=== PATIENT | female | born 1985 | race Caucasian/White ===

== ENCOUNTER 2023-01-25 10:30 | Emergency (ER) | payer MEDICARE, MEDICAID, SELFPAY ==
[2023-01-25 11:02] VITALS: BP 104/78; PULSE 80; RESP 14; TEMP 36.4; O2SAT 99; BMI 27.7
[2023-01-25 13:35] VITALS: BP 122/78; PULSE 78; RESP 14; O2SAT 99
--- NOTE | 2023-01-25 14:42 | ED_ITS ---
HPI - Recheck/Abnormal Lab/Rx <Martínez Cox PA-C - Last Filed: 01/26/23 11:33> General Chief Complaint: Recheck/Abnormal Lab/Rx Stated Complaint: needs meds refill Time Seen by Provider: 01/25/23 12:57 Source: patient Mode of arrival: Ambulatory History of Present Illness HPI narrative: 37-year-old female with past medical history paranoid schizophrenia, PTSD presents to the ED accompanied by her cousin and her aunt for medication refills. Patient recently move to [facility] and the [facility], is in the process of getting her state insurance and establishing care with a PCP. Patient is meanwhile running out of her prescription medications, therefore presents to the ED for some refills until she can see her new doctor. Patient is scheduled to see her new PCP in mid February. Patient presents with prescriptions for benztropine, hydroxyzine, escitalopram, trazodone. Patient also receives what might be a long-acting version of a Haldol injection every 3 weeks, however patient is and states that she does not know what the dose is or anymore details. Patient states that her mental status feels stable currently. She is not hearing any voices. She is eating and sleeping well. Her mood appears to be stable. Patient denies any suicidal or homicidal ideation. Related Data Previous Rx's Medication Instructions Recorded benztropine 0.5 mg tablet 0.5 mg PO BEDTIME #60 tabs 01/25/23 clindamycin phosphate 1 % topical 1 applic topical BID 2 months #60 01/25/23 solution mL escitalopram oxalate 10 mg tablet 10 mg PO DAILY 60 days #60 tabs 01/25/23 hydroxyzine HCl 50 mg tablet 50 mg PO TID PRN anxiety 60 days 01/25/23 #180 tabs trazodone 100 mg tablet 200 mg (2 x 100 mg) PO BEDTIME PRN 01/25/23 sleep 60 days #120 tabs Allergies Allergy/AdvReac Type Severity Reaction Status Date / Time No Known Drug Allergies Allergy Verified 01/25/23 11:07 Review of Systems <Martínez Cox PA-C - Last Filed: 01/26/23 11:33> Review of Systems ROS Unobtainable: All systems reviewed & are unremarkable except as noted in HPI and below Constitutional Constitutional: Denies chills, Denies fatigue, Denies fever(s), Denies frequent falls, Denies lethargy and Denies weakness Eyes Eyes: Denies change in vision, Denies eye discharge, Denies irritation and Denies loss of vision ENT Ears, Nose, Mouth, and Throat: Denies change in voice, Denies dizziness, Denies neck pain, Denies sore throat and Denies throat swelling Cardiovascular Cardiovascular: Denies chest pain, Denies irregular heart rhythm, Denies lightheadedness, Denies palpitations, Denies dyspnea, Denies dyspnea on exertion and Denies orthopnea Respiratory Respiratory: Denies cough, Denies dyspnea, Denies dyspnea on exertion and Denies wheezing Gastrointestinal Gastrointestinal: Denies abdominal pain, Denies change in bowel habits, Denies diarrhea, Denies nausea and Denies vomiting Musculoskeletal Musculoskeletal: Denies neck pain and Denies numbness Integumentary/Breasts Skin/Breast: Denies pruritus, Denies erythema, Denies rash and Denies wounds Neurologic Neurologic: Denies behavioral changes, Denies confusion, Denies dizziness, Denies frequent falls, Denies loss of vision, Denies numbness and Denies weakness Psychiatric Psychiatric: Denies anxiety, Denies behavioral changes, Denies confusion, Denies depression, Denies homicidal ideation and Denies suicidal ideation Endocrine Endocrine: Denies fatigue, Denies flushing and Denies palpitations Hematologic/Lymphatic Hematologic/Lymphatic: Denies easy bruising Allergic/Immunologic Allergic/Immunologic: Denies urticaria, Denies throat swelling and Denies wheezing Patient History <Martínez Cox PA-C - Last Filed: 01/26/23 11:33> Social History Smoking Status: Never smoker Smoking Status: Never smoker alcohol intake frequency: 0-2 drinks per day Substance Use Type: does not use Exam <Martínez Cox PA-C - Last Filed: 01/26/23 11:33> Narrative Exam Narrative: Const General:?cooperative, healthy appearing and comfortable [facility] Head:?normal to inspection Ears:?hearing grossly normal bilaterally Nose:?external nose normal Face and sinus:?normal facial exam and sinuses nontender Mouth:?oral mucosae normal Throat:?posterior oropharynx normal Eyes General:?appearance normal, both eyes and all related structures Neck Neck:?normal visual inspection and no lymphadenopathy noted Resp Effort & Inspection:?normal respiratory effort Auscultation:?clear to auscultation bilaterally Cardio Rate:?regular rate Rhythm:?regular rhythm Neuro General:?patient alert, patient awake and patient oriented x3 Initial Vital Signs Initial Vital Signs: Vital Signs Temperature 97.6 F 01/25/23 11:02 Pulse Rate 80 01/25/23 11:02 Respiratory Rate 14 01/25/23 11:02 Blood Pressure 104/78 01/25/23 11:02 Pulse Oximetry 99 01/25/23 11:02 Oxygen Delivery Method Room Air 01/25/23 11:02 <Dalia Wheeler MD - Last Filed: 01/26/23 13:59> Initial Vital Signs Initial Vital Signs: Vital Signs Temperature 97.6 F 01/25/23 11:02 Pulse Rate 80 01/25/23 11:02 Respiratory Rate 14 01/25/23 11:02 Blood Pressure 104/78 01/25/23 11:02 Pulse Oximetry 99 01/25/23 11:02 Oxygen Delivery Method Room Air 01/25/23 11:02 Course <Martínez Cox PA-C - Last Filed: 01/26/23 11:33> Vital Signs Vital signs: Vital Signs - 8 hr 01/25/23 11:02 01/25/23 13:35 Temperature 97.6 F Pulse Rate 80 78 Respiratory Rate 14 14 Blood Pressure 104/78 122/78 Pulse Oximetry 99 99 Oxygen Delivery Method Room Air Room Air <Dalia Wheeler MD - Last Filed: 01/26/23 13:59> Vital Signs Vital signs: Vital Signs - 8 hr 01/25/23 11:02 01/25/23 13:35 Temperature 97.6 F Pulse Rate 80 78 Respiratory Rate 14 14 Blood Pressure 104/78 122/78 Pulse Oximetry 99 99 Oxygen Delivery Method Room Air Room Air MDM - Recheck/Abnormal Lab/Rx <Martínez Cox PA-C - Last Filed: 01/26/23 11:33> MDM Narrative Medical decision making narrative: 37-year-old female with past medical history paranoid schizophrenia, PTSD presents to the ED accompanied by her cousin and her aunt for medication refill s. Refill prescriptions for trazodone, hydroxyzine, escitalopram, benztropine. Discussed with patient and her relatives that it is advisable they follow-up with patient's prior doctor to get details on the Haldol, and have it every started by her PCP in February. ED return precautions discussed with patient and patient's relatives. They verbalized understanding. Discharge Plan Departure Patient Disposition: Home Clinical Impression: Encounter for medication refill Instructions: DI for Schizophrenia Activity Restrictions/Additional Instructions: You were seen in the ED today for some medication refills since you moved to [place] recently and are in the process of establishing a new provider and new medical insurance. You are being prescribed benztropine, hydroxyzine, escitalopram, trazodone for 2 months so you can continue to receive her medications until you see your new doctor. It is unclear what dose of long- acting Haldol injection you are receiving, and this is not a medication that we have available in the emergency department. I would recommend calling your previous doctor to get details on dose and frequency, and let your new doctor know that this is something that needs to be re-initiated. You were also being prescribed topical clindamycin solution for the rash under your left arm. Please follow-up with the steam shovel operating engineer as soon as possible for it. Return to the ED if you have any thoughts of harming yourself or others around yourself. Prescriptions: New trazodone 100 mg tablet 200 mg PO BEDTIME PRN (Reason: sleep) 60 Days Qty: 120 0RF escitalopram oxalate 10 mg tablet 10 mg PO DAILY 60 Days Qty: 60 0RF hydroxyzine HCl 50 mg tablet 50 mg PO TID PRN (Reason: anxiety) 60 Days Qty: 180 0RF benztropine 0.5 mg tablet 0.5 mg PO BEDTIME Qty: 60 0RF clindamycin phosphate 1 % solution 1 applic topical BID 60 Days Qty: 60 0RF Stand Alone Forms: Patient Portal/API ED Sign-out <Dalia Wheeler MD - Last Filed: 01/26/23 13:59> Cosign ED Attending Cosignature Attestation: I did not see this patient. I was available all times for consultation.
== END 2023-01-25 13:36 | disposition home or self-care (01) ==
PROVIDERS: Emergency Provider Student in an Organized Health Care Education/Training Program
DX: Z76.0 Encounter for issue of repeat prescription (principal); R21 Rash and other nonspecific skin eruption
CPT/HCPCS: 99281; 99282

== ENCOUNTER 2023-04-05 09:28 | Emergency (ER) | payer MEDICARE, MEDICAID, SELFPAY ==
[2023-04-05 09:31] VITALS: PULSE 89; RESP 14; TEMP 36.3; O2SAT 100; BMI 32.3
--- NOTE | 2023-04-05 09:59 | PC.NURSE ---
Called [facility] in [place],she receives 100mg haldol q month
--- NOTE | 2023-04-05 10:53 | PC.NURSE ---
Provider prescribed haldol dose was not available to administer. Provider wrote script for patient to lease picker dose at pharmacy. Order on MAR canceled per provider.
[2023-04-05 10:55] VITALS: BP 148/72; PULSE 86; RESP 18; TEMP 36.8; O2SAT 98
--- NOTE | 2023-04-06 18:08 | ED_ITS ---
HPI - Recheck/Abnormal Lab/Rx General Chief Complaint: Recheck/Abnormal Lab/Rx Stated Complaint: needs meds straightened hears voices Time Seen by Provider: 04/05/23 09:49 Source: patient Mode of arrival: Ambulatory History of Present Illness HPI narrative: 37-year-old female with a history of schizophrenia and recently moved here from [place]. She has not been getting her regular psychiatric medications since moving as she moved here without a provider. In particular, she and her aunt who is her caregiver are hoping she can get Haldol Decanoate 100 mg which she receives monthly IM injections of and she has not had an over 2 months. Patient is not having suicidal or homicidal ideations. Also needs refill is of some of her regular medications. Related Data Previous Rx's Medication Instructions Recorded benztropine 0.5 mg tablet 0.5 mg PO BEDTIME #60 tabs 01/25/23 benztropine 0.5 mg tablet 0.5 mg PO DAILY #30 tabs 04/05/23 escitalopram oxalate 10 mg tablet 10 mg PO DAILY #30 tabs 04/05/23 haloperidol decanoate 100 mg/mL 100 mg IM Q4W #1 mL 04/05/23 intramuscular solution (Haldol Decanoate) trazodone 100 mg tablet 200 mg (2 x 100 mg) PO BEDTIME #60 04/05/23 tabs Allergies Allergy/AdvReac Type Severity Reaction Status Date / Time Penicillins Allergy Verified 04/05/23 09:31 Patient History Social History Smoking Status: Never smoker Smoking Status: Never smoker alcohol intake frequency: holidays/special occasions only Substance Use Type: does not use Exam Initial Vital Signs Initial Vital Signs: Vital Signs Temperature 97.3 F L 04/05/23 09:31 Pulse Rate 89 04/05/23 09:31 Respiratory Rate 14 04/05/23 09:31 Pulse Oximetry 100 04/05/23 09:31 Oxygen Delivery Method Room Air 04/05/23 09:31 Const General: No acute distress HENMT Head: normocephalic and atraumatic Resp Effort & Inspection: normal respiratory effort Cardio Other: Heart rate is normal Skin Other: Skin is warm and dry Neuro General: patient alert and patient oriented x3 Psych Appearance: well kempt Mood: congruent mood Affect: normal affect Judgment: judgment good Course Orders Ordered: Discontinued Medications Non-Formulary Medication (Haldol Decanoate) 100 mg IM NOW ONE Stop: 04/05/23 10:32 Last Admin: 04/05/23 10:53 Dose: Not Given Documented By: RB MDM - Recheck/Abnormal Lab/Rx MDM Narrative Medical decision making narrative: 37-year-old female requesting refills on her psych medications. I have provided a prescription for a dose of Haldol Decanoate as well as refills of benztropine and Lexapro. Encouraged him to establish care in the community which they are making every effort to do. Discharge Plan Departure Patient Disposition: Home Clinical Impression: Encounter for medication refill Activity Restrictions/Additional Instructions: I sent a prescription for medication refills including a single dose of injectable Haldol to your pharmacy. I hope that you can establish primary care for her soon. Previous psych medication should be continued by new primary care provider or psychiatrist. Prescriptions: New benztropine 0.5 mg tablet 0.5 mg PO DAILY Qty: 30 0RF escitalopram oxalate 10 mg tablet 10 mg PO DAILY Qty: 30 0RF trazodone 100 mg tablet 200 mg PO BEDTIME Qty: 60 0RF Rx Instructions: prn QHS for sleep haloperidol decanoate [Haldol Decanoate] 100 mg/mL solution 100 mg IM Q4W Qty: 1 0RF No Action benztropine 0.5 mg tablet 0.5 mg PO BEDTIME Qty: 60 0RF Stand Alone Forms: Patient Portal/API
== END 2023-04-05 10:57 | disposition home or self-care (01) ==
PROVIDERS: Emergency Provider Emergency Medicine
DX: Z76.0 Encounter for issue of repeat prescription (principal)
CPT/HCPCS: 99281; 99282

== ENCOUNTER → 2024-02-25 12:42 | Outpatient (CLI) | payer MEDICARE, MEDICAID, SELFPAY ==
[2024-02-25 13:08] LABS: Add Manual Diff / Slide Review NO; Basophils Absolute Auto 100 /uL (0-100); Basophils Percent Auto 0.9 % (0-2); Eosinophils Absolute Auto 100 /uL (0-450); Eosinophils Percent Auto 1.5 % (2-4); Hematocrit 41.8 % (36-46); Hemoglobin 14.1 g/dL (12.0-16.0); Lymphocytes Absolute Auto 2600 /uL (1100-4500); Lymphocytes Percent Auto 35.7 % (25-40); Mean Corpuscular HGB Conc 33.8 % (30-36); Mean Corpuscular Hemoglobin 29.2 PG (26-34); Mean Corpuscular Volume 86.5 fL (80-100); Monocytes Absolute Auto 700 /uL (0-900); Monocytes Percent Auto 9.2 % (3-14); Neutrophils Absolute Auto 3800 /uL (1500-7000); Neutrophils Percent Auto 52.7 % (50-75); Platelet Count 319 X10^3/uL (150-400); Red Blood Cell Count 4.83 X10^6/uL (4.0-5.2); Red Cell Distribution Width 13.5 % (11.6-14.8); White Blood Cell Count 7.3 X10^3/uL (4.5-11.0)
[2024-02-25 13:26] LABS: Hemoglobin A1C% w Est Avg Glu 5.4 % (4.0-6.0)
[2024-02-25 13:30] LABS: Alanine Aminotransferase 16 IU/L (<35); Albumin 4.4 g/dL (3.5-5.0); Albumin Globulin Ratio 1.5 (1.0-2.8); Alkaline Phosphatase 74 U/L (38-126); Aspartate Aminotransferase 21 IU/L (14-36); BUN Creatinine Ratio 14.5 (6-22); Bilirubin Total 0.4 mg/dL (0.2-1.3); Blood Urea Nitrogen 12 mg/dL (7-17); Calcium 9.6 mg/dL (8.4-10.2); Carbon Dioxide 28 mmol/L (22-32); Chloride 104 mmol/L (98-107); Cholesterol 284 mg/dL (140-199); Estimated Glomerular Filt Rate > 60 mL/min (>60); Glucose 96 mg/dL (70-100); HDL Cholesterol 44 mg/dL (40-60); HEMOLYSIS < 15 (0-50); LDL Cholesterol Calculated 200 mg/dL (<100); Potassium 4.4 mmol/L (3.4-5.1); Sodium 137 mmol/L (137-145); Total Protein 7.4 g/dL (6.3-8.2); Triglycerides 202 mg/dL (35-150)
== END ==
PROVIDERS: PCP Family Medicine; Referring Provider Family Medicine; Visit Provider Family Medicine
DX: F20.9 Schizophrenia, unspecified (principal); Z86.59 Personal history of other mental and behavioral disorders; F43.10 Post-traumatic stress disorder, unspecified; F60.9 Personality disorder, unspecified
CPT/HCPCS: 36415; 80053; 80061; 83036; 85025

== ENCOUNTER → 2024-04-25 15:16 | Outpatient (CLI) | payer MEDICARE, MEDICAID, SELFPAY ==
--- NOTE | 2024-04-25 15:18 | DI.MG.S_ITS ---
BILATERAL DIGITAL SCREENING MAMMOGRAM 3D/2D WITH CAD: 04/25/2024 CLINICAL: Baseline exam. Routine screening. Family history of breast cancer. No prior exams were available for comparison. There are scattered areas of fibroglandular density (category b / 25%-50% glandular tissue). Current study was also evaluated with a Computer Aided Detection (CAD) system. No significant masses, calcifications, or other findings are seen in either breast. IMPRESSION: NEGATIVE There is no mammographic evidence of malignancy. A 1 year screening mammogram is recommended. Based on the Tyrer Cuzick model (a risk assessment model) the patient's lifetime risk is 14.2% and her 10 year risk is 1.8%. According to the ACR, ACS, and NCCN guidelines, an annual breast MRI exam along with mammogram is recommended if the patient's lifetime risk is 20% or greater. This exam was interpreted at Station ID: [id number]. NOTE: For mammograms, a report in lay terms will be sent to the patient. Approximately 15% of breast malignancies will not be visualized mammographically. In the management of a palpable breast mass, a negative mammogram must not discourage biopsy of a clinically suspicious lesion. Electronically Signed By: Fermin olmstead/carmen:04/26/2024 07:51:11 letter sent: Normal Exam ACR BI-RADS Category 1: Negative
== END ==
PROVIDERS: PCP Family Medicine; Referring Provider Family Medicine; Visit Provider Family Medicine
DX: Z12.31 Encounter for screening mammogram for malignant neoplasm of breast (principal); Z80.3 Family history of malignant neoplasm of breast
CPT/HCPCS: 77063; 77067